=== PATIENT | female | born 1980 | race Caucasian/White ===

== ENCOUNTER 2016-06-05 10:40 | Emergency (ER) | payer BC, OTHER ==
[2016-06-05] MEDS ORDERED: DEXAMETHASONE 10 MG/ML VIAL PO STA (12:38)
[2016-06-05] MEDS ORDERED: CEPHALEXIN 250 MG CAPSULE PO STA (12:39)
[2016-06-05] MEDS ORDERED: CEPHALEXIN 250 MG CAPSULE PO ONE (12:40)
[2016-06-05] MEDS ORDERED: DEXAMETHASONE 10 MG/ML VIAL ONE (12:41)
== END 2016-06-05 12:48 | disposition home or self-care (01) ==
DX: J02.9 Acute pharyngitis, unspecified (principal); R03.0 Elevated blood-pressure reading, without diagnosis of hypertension
CPT/HCPCS: 81025; 87430; 99283; A9270

== ENCOUNTER 2017-01-21 21:43 | Emergency (ER) | payer BC ==
[2017-01-21] MEDS ORDERED: SODIUM CHLORIDE 0.9% 1,000 ML IV ONE (22:03)
[2017-01-21] MEDS ORDERED: ACETAMINOPHEN 500 MG TABLET PO STA (22:03)
[2017-01-21] MEDS ORDERED: METOCLOPRAMIDE 10 MG/2 ML VIAL IVP STA (22:03)
[2017-01-21] MEDS ORDERED: diphenhydrAMINE INJ 50 MG/ML VIAL IVP STA (22:03)
[2017-01-21] MEDS ORDERED: KETOROLAC 60 MG/2 ML VIAL IVP STA (22:21)
[2017-01-21] MEDS ORDERED: diphenhydrAMINE INJ 50 MG/ML VIAL ONE (22:29)
[2017-01-21] MEDS ORDERED: METOCLOPRAMIDE 10 MG/2 ML VIAL ONE (22:29)
[2017-01-21] MEDS ORDERED: ACETAMINOPHEN 500 MG TABLET PO ONE (22:30)
[2017-01-21] MEDS ORDERED: KETOROLAC 15 MG/ML VIAL ONE (22:30)
[2017-01-21 23:44] LABS: ALBUMIN/GLOBULIN RATIO 1.2 (1.0-2.2); BILIRUBIN,TOTAL 0.3 mg/dL (0.2-1.0); CALCIUM 8.3 mg/dL (8.5-10.3); CREATININE 0.7 mg/dL (0.4-1.0); POTASSIUM 3.4 mmol/L (3.5-5.0); TOTAL PROTEIN 6.5 g/dL (6.7-8.2)
[2017-01-21 23:49] LABS: BASOPHILS % (AUTO) 0.6 %; EOSINOPHILS # (AUTO) 0.1 10^3/uL (0.0-0.7); EOSINOPHILS % (AUTO) 1.4 %; HCT - HEMATOCRIT 38.3 % (37.0-47.0); HGB - HEMOGLOBIN 13.2 g/dL (12.0-16.0); LYMPHOCYTES # (AUTO) 1.9 10^3/uL (1.5-3.5); LYMPHOCYTES % (AUTO) 23.6 %; MEAN CORPUSCULAR HEMOGLOBIN 30.7 pg (27.0-31.0); MEAN CORPUSCULAR HGB CONC 34.5 g/dL (32.0-36.0); MEAN CORPUSCULAR VOLUME 89.1 fL (81.0-99.0); MEAN PLATELET VOLUME 8.8 fL (7.9-10.8); MONOCYTES # (AUTO) 0.5 10^3/uL (0.0-1.0); MONOCYTES % (AUTO) 6.2 %; NEUTROPHILS # (AUTO) 5.6 10^3/uL (1.5-6.6); NEUTROPHILS % (AUTO) 68.2 %; RED CELL DISTRIBUTION WIDTH 13.2 % (12.0-15.0); UNCORRECTED WHITE BLOOD COUNT 8.2 x10^3/uL; WHITE BLOOD COUNT 8.2 x10^3/uL (4.8-10.8)
--- NOTE | 2017-01-22 00:20 | ED Physician Documentation ---
PD HPI HEADACHE - Stated complaint Stated Complaint: ALLEN/HBP - Chief complaint Chief Complaint: Neuro - History obtained from History obtained from: Patient - History of Present Illness Timing - onset: Today Timing - onset during: Rest Timing - details: Gradual onset, Still present Location: Front, Global Quality: Aching Associated symptoms: No: Fever, Stiff neck, Nausea, Vomiting, Weakness, Syncope Similar symptoms before: No diagnosis Recently seen: Clinic - Additional information Additional information: Patient is a 36 year old female with no significant past medical history who is presenting to the emergency department for headache and elevated blood pressure. Patient states that today she started with a dull headache that got progressively worse. patient reports that her doctor recently told her that her blood pressure was high and that she needed to keep an eye on it. patient states that her blood pressure was again high today so she came in. Review of Systems Constitutional: denies: Fever, Chills Eyes: denies: Photophobia Ears: reports: Reviewed and negative Nose: reports: Reviewed and negative Throat: denies: Sore throat Cardiac: denies: Chest pain / pressure, Palpitations, Calf pain Respiratory: denies: Dyspnea, Cough, Wheezing GI: denies: Abdominal Pain, Nausea, Vomiting : reports: Reviewed and negative Skin: reports: Reviewed and negative Musculoskeletal: denies: Neck pain Neurologic: reports: Headache. denies: Syncope, Altered mental status, Head injury, LOC Immunocompromised: denies: Immunocompromised PD PAST MEDICAL HISTORY - Past Medical History Neuro: Headache/migraine - Past Surgical History Past Surgical History: No - Present Medications Home Medications: Ambulatory Orders Medication Instructions Recorded Confirmed Cephalexin [Keflex] 500 mg PO Q6H 7 Days capsule 06/05/16 Norgestimate-Ethinyl Estradiol 1 tab PO DAILY 06/05/16 06/05/16 [Ortho Tri-Cyclen 28 Tablet] - Allergies Allergies/Adverse Reactions: Allergies Allergy/AdvReac Type Severity Reaction Status Date / Time Penicillins Allergy Unknown Verified 01/21/17 21:58 - Social History Does the pt smoke?: No Smoking Status: Never smoker Does the pt drink ETOH?: Yes Does the pt have substance abuse?: No - Immunizations Immunizations are current?: Yes - POLST Patient has POLST: No PD ED PE NORMAL - Vitals Vital signs reviewed: Yes - General General: Alert and oriented X 3, No acute distress - HEENT HEENT: Atraumatic, PERRL, Pharynx benign - Neck Neck: Supple, no meningeal sign, No bony TTP - Cardiac Cardiac: RRR, No murmur - Respiratory Respiratory: No respiratory distress, Clear bilaterally - Abdomen Abdomen: Soft, Non tender, Non distended - Derm Derm: Normal color, Warm and dry, No rash - Extremities Extremities: No deformity, No edema, No calf tenderness / cord - Neuro Neuro: Alert and oriented X 3, 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, No motor deficit, No sensory deficit, Normal speech Eye Opening: Spontaneous Motor: Obeys Commands Verbal: Oriented GCS Score: 15 Results - Vitals Vitals: Vital Signs - 24 hr 01/21/17 01/21/17 01/21/17 21:56 22:43 23:06 Temperature 36.0 C L Heart Rate 103 H 88 95 Respiratory 99 H 16 18 Rate Blood Pressure 187/118 H 145/91 H O2 Saturation 100 100 100 01/22/17 00:27 Temperature 36.2 C L Heart Rate 91 Respiratory 16 Rate Blood Pressure 128/87 H O2 Saturation 97 Oxygen O2 Source Room air - EKG (time done) 2253 Rate: Rate (enter#) (89) Rhythm: NSR [place]: Normal Intervals: Normal [place] QRS: Normal Ischemia: Normal ST segments - Labs Labs: Laboratory Tests 01/21/17 01/21/17 01/21/17 23:20 23:20 23:20 WBC 8.2 RBC 4.30 Hgb 13.2 Hct 38.3 MCV 89.1 MCH 30.7 MCHC 34.5 RDW 13.2 Plt Count 223 MPV 8.8 Neut # 5.6 Lymph # 1.9 [place] # 0.5 Eos # 0.1 Baso # 0.0 Absolute Nucleated RBC 0.00 Nucleated RBC % 0.0 Sodium 138 Potassium 3.4 L Chloride 105 Carbon Dioxide 22 Anion Gap 11.0 BUN 9 Creatinine 0.7 Estimated GFR (MDRD) 94 Glucose 94 Calcium 8.3 L Total Bilirubin 0.3 AST 18 ALT 12 Alkaline Phosphatase 40 L Total Protein 6.5 L Albumin 3.6 Globulin 2.9 Albumin/Globulin Ratio 1.2 Lipase 18 L TSH 6.38 H PD MEDICAL DECISION MAKING - ED course Complexity details: reviewed old records, reviewed results, re-evaluated patient , considered differential, d/w patient, d/w family ED course: Patient was seen and examined at bedside. Patient was well appearing, a little anxious but in no distress. IV access was gained and labs were drawn. Patient was treated with toradol, reglan, bendaryl and IV fluids. Patient's labs were within normal limits and her blood pressure normalized without intervention. Patient and mother were educated on hypertension and lifestyle changes. patient required no further work up and was stable for discharge with outpatient follow up. Departure - Departure Disposition: 01 Home, Self Care Clinical Impression: Headache, Hypertension Condition: Good Instructions: ED Cephalgia Unspecified Follow-Up: Itz Templeton MD [Primary Care Provider] - Comments: Your diagnostics today were within normal limits. there is no sign of end organ damage. It is important to try to start to control your blood pressure with a low sodium diet and exercise. You should monitor your blood pressures at least three times a day for the next week before you can follow up with your doctor. You should makes sure you get plenty of rest and stay well hydrated. You can take motrin or tylenol as needed for pain. You may return to the emergency department at any time for new, worsening or uncontrollable symptoms. Discharge Date/Time: 01/22/17 00:29
[2017-01-22 00:28] VITALS: BP 128/87
== END 2017-01-22 00:29 | disposition home or self-care (01) ==
LOC: ED 21:43
DX: R51 Headache (principal); I10 Essential (primary) hypertension
CPT/HCPCS: 36415; 80053; 83690; 84443; 85025; 93005; 96361; 96374; 96375; 99283; A9270

== ENCOUNTER 2018-10-24 10:15 | Emergency (ER) | payer BC ==
[2018-10-24 10:25] VITALS: BP 143/92
[2018-10-24] MEDS ORDERED: CHERRY SYRUP 10 ML UDC PO ONE (10:47)
[2018-10-24] MEDS ORDERED: CYCLOBENZAPRINE 10 MG TABLET PO STA (10:47)
[2018-10-24] MEDS ORDERED: DEXAMETHASONE 10 MG/ML VIAL PO STA (10:47)
[2018-10-24] MEDS ORDERED: oxyCODONE 5 MG TABLET PO STA (10:47)
--- NOTE | 2018-10-24 10:55 | ED Physician Documentation ---
PD HPI BACK PAIN - Stated complaint Stated Complaint: BACK PX - Chief complaint Chief Complaint: Back Pain - History obtained from History obtained from: Patient, Family - History of Present Illness Timing - onset: How many days ago (2-3) Timing - duration: Days Timing - details: Gradual onset Pain level max: 8 Pain level now: 8 Location: Lower, Right Quality: Pain, Spasm Associated symptoms: No: Fever, Weakness, Numbness, Incontinent of urine, Unable to urinate, Hematuria, Incontinent of stool Improves with: Rest, Other (standing) Worsened by: Movement Contributing factors: Other (tripped on a lego) - Additional information Additional information: pain radiating down the L leg Review of Systems Constitutional: denies: Fever, Chills GI: denies: Vomiting, Diarrhea : denies: Now EGA Skin: denies: Rash Musculoskeletal: denies: Neck pain Neurologic: denies: Focal weakness, Numbness, Difficulty speaking, Headache PD PAST MEDICAL HISTORY - Past Medical History Past Medical History: No - Past Surgical History Past Surgical History: No - Present Medications Home Medications: Ambulatory Orders Medication Instructions Recorded Confirmed Norgestimate-Ethinyl Estradiol 1 tab PO DAILY 06/05/16 06/05/16 [Ortho Tri-Cyclen 28 Tablet] Cyclobenzaprine [Flexeril] 10 mg PO TID PRN #20 tablet 10/24/18 Oxycodone HCl/Acetaminophen 1 - 2 each PO Q6H PRN #14 tablet 10/24/18 [Percocet 5-325 mg Tablet] Propranolol [Inderal] 10 mg PO BID 10/24/18 10/24/18 predniSONE [Deltasone] 10 mg PO [id number] #42 tab 10/24/18 - Allergies Allergies/Adverse Reactions: Allergies Allergy/AdvReac Type Severity Reaction Status Date / Time Penicillins Allergy Unknown Verified 10/24/18 10:24 - Social History Does the pt smoke?: No Smoking Status: Never smoker Does the pt drink ETOH?: Yes Does the pt have substance abuse?: No - Immunizations Immunizations are current?: Yes - POLST Patient has POLST: No PD ED PE NORMAL - Vitals Vital signs reviewed: Yes - General General: Alert and oriented X 3, No acute distress, Well developed/nourished - HEENT HEENT: PERRL, Moist mucous membranes - Neck Neck: Supple, no meningeal sign - Cardiac Cardiac: RRR, Strong equal pulses - Respiratory Respiratory: No respiratory distress, Clear bilaterally - Abdomen Abdomen: Soft, Non tender, Non distended - Back Back: No spinal TTP (No midline tenderness to palpation or percussion. Paraspinal spasm right low lumbar.) - Derm Derm: Warm and dry, No rash - Extremities Extremities: No edema, Other (Normal bilateral lower extremity patellar and ankle jerk reflexes. Normal great toe extension bilaterally. no saddle anesthesia) - Neuro Neuro: Alert and oriented X 3, No motor deficit, No sensory deficit - Psych Psych: Normal mood, Normal affect Results - Vitals Vitals: Vital Signs - 24 hr 10/24/18 10:22 Temperature 36 C L Heart Rate 78 Respiratory 18 Rate Blood Pressure 143/92 H O2 Saturation 99 Oxygen O2 Source Room air PD MEDICAL DECISION MAKING - ED course Complexity details: considered differential (No cauda equina, no spinal epidural abscess, no fracture, no aortic dissection or evidence of aneursym rupture), d/w patient, d/w family ED course: 38-year-old female with sciatica. Will place on pain medications, steroids and muscle relaxants. She is well-appearing, nontoxic. Afebrile. Patient counseled regarding signs and symptoms for which I believe and urgent re- evaluation would be necessary. Patient with good understanding of and agreement to plan and is comfortable going home at this time This document was made in part using voice recognition software. While efforts are made to proofread this document, sound alike and grammatical errors may occur. Departure - Departure Disposition: 01 Home, Self Care Clinical Impression: Sciatica Qualifiers: Laterality: right Qualified Code(s): M54.31 - Sciatica, right side Condition: Good Instructions: ED Sciatica Follow-Up: Itz Templeton MD [Primary Care Provider] - Within 1 week Prescriptions: Cyclobenzaprine [Flexeril] 10 mg PO TID PRN #20 tablet PRN Reason: Spasms Oxycodone HCl/Acetaminophen [Percocet 5-325 mg Tablet] 1 - 2 each PO Q6H PRN #14 tablet PRN Reason: pain predniSONE [Deltasone] 10 mg PO [id number] #42 tab Comments: Return if you worsen. Follow-up with your doctor for further care. This should improve over the next few days to week. Do not drink alcohol or drive while on narcotic pain medicine. Note that many narcotic pain relievers also contain tylenol/acetaminophen. Please ensure that your total dose of acetaminophen from all sources does not exceed 3 grams (3000mg) per day. You may constipated on this medication, take a stool softener such as "Colace" twice a day while you are on it. Also recommend a lbxr-xhq-ekafeho laxative such as senna or MiraLAX any day that you do not have a bowel movement. If you received narcotic pain medication in the emergency department, do not drive or operate machinery for the next 24 hours. Discharge Date/Time: 10/24/18 11:15
== END 2018-10-24 11:15 | disposition home or self-care (01) ==
LOC: ED 10:15
DX: M54.31 Sciatica, right side (principal)
CPT/HCPCS: 99283; 99284; A9270

== ENCOUNTER 2018-12-03 14:43 | Emergency (ER) | payer BC ==
[2018-12-03 14:49] VITALS: BP 130/96
--- NOTE | 2018-12-03 15:02 | ED Physician Documentation ---
PD HPI UPPER EXT INJURY - Stated complaint Stated Complaint: RT WRIST PAIN - Chief complaint Chief Complaint: Ext Problem - History obtained from History obtained from: Patient - History of Present Illness Location: Right, Wrist Type of injury: Other (states lifting a seat in her vehicle and felt pain and swelling in the R wrist.) Where injury occurred: Home Timing - onset: How many hours ago (1) Timing - duration: Hours (1) Timing - details: Abrupt onset Pain level max: 8 Pain level now: 4 Improved by: Rest, Ice, Immobilization Worsened by: Moving, Palpating Associated symptoms: Swelling, Discolored (bruising). No: Weakness, Numbness, Tingling Similar symptoms before: Has not had sx before Recently seen: Not recently seen - Additonal information Additional information: pt is right handed Review of Systems Constitutional: denies: Fever, Chills GI: denies: Vomiting : denies: Now EGA Skin: denies: Rash Musculoskeletal: denies: Neck pain, Back pain PD PAST MEDICAL HISTORY - Past Medical History Cardiovascular: Hypertension - Past Surgical History Past Surgical History: No - Present Medications Home Medications: Ambulatory Orders Medication Instructions Recorded Confirmed Norgestimate-Ethinyl Estradiol 1 tab PO DAILY 06/05/16 06/05/16 [Ortho Tri-Cyclen 28 Tablet] Propranolol [Inderal] 10 mg PO BID 10/24/18 12/03/18 - Allergies Allergies/Adverse Reactions: Allergies Allergy/AdvReac Type Severity Reaction Status Date / Time Penicillins Allergy Unknown Verified 12/03/18 14:46 - Social History Does the pt smoke?: No Smoking Status: Never smoker Does the pt drink ETOH?: Yes Does the pt have substance abuse?: No - Immunizations Immunizations are current?: Yes - POLST Patient has POLST: No PD ED PE NORMAL - Vitals Vital signs reviewed: Yes - General General: Alert and oriented X 3, No acute distress - HEENT HEENT: Moist mucous membranes - Derm Derm: Warm and dry - Extremities Extremities: Other (R wrist - small eccymosis to ventral R wrist. Mild diffuse TTP. no snuffbox tenderness. FROM of the wrist and all fingers and thumb. Tendons intact. ) - Neuro Neuro: Alert and oriented X 3 Results - Vitals Vitals: Vital Signs - 24 hr 12/03/18 14:46 Temperature 36.6 C Heart Rate 77 Respiratory 16 Rate Blood Pressure 130/96 H O2 Saturation 100 Oxygen O2 Source Room air - Rads (name of study) R wrist xray Radiology: Prelim report reviewed, EMP read contemporaneously, See rad report (normal) PD MEDICAL DECISION MAKING - ED course Complexity details: reviewed results, re-evaluated patient, considered differential, d/w patient, d/w family ED course: Right wrist sprain. Placed in a Velcro thumb spica for comfort. Will utilize Motrin and Tylenol as needed for pain at home. No acute findings on x-ray. No snuffbox tenderness. Patient counseled regarding signs and symptoms for which I believe and urgent re-evaluation would be necessary. Patient with good understanding of and agreement to plan and is comfortable going home at this time This document was made in part using voice recognition software. While efforts are made to proofread this document, sound alike and grammatical errors may occur. She has pain with thumb movement, so will use thumb spica Departure - Departure Disposition: 01 Home, Self Care Clinical Impression: Right wrist sprain Qualifiers: Encounter type: initial encounter Qualified Code(s): S63.501A - Unspecified sprain of right wrist, initial encounter Condition: Good Instructions: ED Sprain Wrist Follow-Up: NELIA CLARK ARNP [Primary Care Provider] - Within 1 week Comments: Wear the splint as needed for comfort. Your x-ray is normal today. Return if you worsen. Follow-up with your doctor in 1 week for further care. You can use Motrin or Tylenol as needed for pain.
--- NOTE | 2018-12-03 15:21 | XRAY Report ---
Reason: R wrist pain, s/p pulling Procedure Date: 12/03/2018 Accession Number: [id number] / [id number] Procedure: XR - Wrist 4 View RT CPT Code: FULL RESULT: EXAM: RIGHT WRIST RADIOGRAPHY EXAM DATE: 12/03/2018 03:13 PM. CLINICAL HISTORY: R wrist pain, s/p pulling. COMPARISON: None. TECHNIQUE: 3 views. FINDINGS: Bones: Normal. No fractures or bone lesions. Joints: Normal. No subluxations. Soft Tissues: Normal. No soft tissue swelling. IMPRESSION: Normal wrist radiography. RADIA
== END 2018-12-03 15:38 | disposition home or self-care (01) ==
LOC: ED 14:43
DX: S63.501A Unspecified sprain of right wrist, initial encounter (principal); X50.0XXA Overexertion from strenuous movement or load, initial encounter; Y93.89 Activity, other specified; Y92.008 Other place in unspecified non-institutional (private) residence as the place of occurrence of the external cause; I10 Essential (primary) hypertension
CPT/HCPCS: 99282; 99283

== ENCOUNTER 2020-09-03 08:00 | Outpatient (CLI) | payer BC ==
--- NOTE | 2020-09-03 14:31 | XRAY Report ---
PROCEDURE: Hip w/Pelvis 2-3V LT INDICATIONS: LEFT HIP PAIN TECHNIQUE: AP pelvis with lateral view(s) of the left hip(s). COMPARISON: None. FINDINGS: Bones: No fractures or dislocations. Pelvic ring appears intact. No evidence of avascular necrosis of femoral head. No suspicious bony lesions. Soft tissues: The visualized bowel gas pattern is normal. No suspicious soft tissue calcifications. IMPRESSION: No acute left hip fracture or dislocation. No evidence of avascular necrosis. Joint space s are well-preserved. Reviewed by: Derrick Grimaldo MD on 09/03/2020 2:30 PM PDT Approved by: Derrick Grimaldo MD on 09/03/2020 2:30 PM PDT Station ID: [id number]
== END 2020-09-03 23:59 | disposition home or self-care (01) ==
LOC: DI.S 08:00
PROVIDERS: ATTEND Physician Assistant Medical
DX: M25.552 Pain in left hip (principal)

== ENCOUNTER 2022-03-12 08:10 | Emergency (ER) | payer BC ==
[2022-03-12] MEDS ORDERED: SODIUM CHLORIDE 0.9% 1,000 ML IV STA (08:51)
[2022-03-12] MEDS ORDERED: diazePAM INJ 5 MG/ML SYRINGE IVP STA ×2 (08:51→11:56)
[2022-03-12] MEDS ORDERED: MECLIZINE 12.5 MG TABLET PO STA ×3 (08:51→11:56)
[2022-03-12] MEDS ORDERED: iohexoL-300 100 ML VIAL ONE (08:56)
[2022-03-12 09:21] LABS: BASOPHILS % (AUTO) 0.5 %; EOSINOPHILS # (AUTO) 0.1 10^3/uL (0.0-0.7); EOSINOPHILS % (AUTO) 0.8 %; LYMPHOCYTES # (AUTO) 1.4 10^3/uL (1.5-3.5); LYMPHOCYTES % (AUTO) 22.5 %; MEAN CORPUSCULAR HEMOGLOBIN 29.9 pg (27.0-31.0); MEAN CORPUSCULAR HGB CONC 34.1 g/dL (32.0-36.0); MEAN CORPUSCULAR VOLUME 87.8 fL (81.0-99.0); MEAN PLATELET VOLUME 9.9 fL (7.9-10.8); MONOCYTES # (AUTO) 0.4 10^3/uL (0.0-1.0); MONOCYTES % (AUTO) 6.4 %; NEUTROPHILS # (AUTO) 4.4 10^3/uL (1.5-6.6); NEUTROPHILS % (AUTO) 69.5 %; PLT - PLATELET COUNT 223 10^3/uL (130-450); RED BLOOD COUNT 5.01 10^6/uL (4.20-5.40); RED CELL DISTRIBUTION WIDTH 12.8 % (12.0-15.0); WHITE BLOOD COUNT 6.3 x10^3/uL (4.8-10.8)
[2022-03-12 09:36] LABS: ALBUMIN 4.2 g/dL (3.2-5.5); ALBUMIN/GLOBULIN RATIO 1.4 (1.0-2.2); BILIRUBIN,TOTAL 0.9 mg/dL (0.2-1.0); CALCIUM 8.6 mg/dL (8.5-10.3); CREATININE 0.7 mg/dL (0.4-1.0); POTASSIUM 3.5 mmol/L (3.5-5.0); TOTAL PROTEIN 7.1 g/dL (6.7-8.2)
--- NOTE | 2022-03-12 10:21 | CT Report ---
PROCEDURE: ANGIO HEAD W/WO INDICATIONS: vertigo/blurred vision; right neck pain CONTRAST: 80ml Omipaque 300 TECHNIQUE: Precontrast 4.5 mm thick angled axial sections acquired from the foramen magnum to the vertex. Afte r the administration of intravenous contrast, 1 mm thick sections acquired through the [place] of [place] is. Postcontrast 4.5 mm thick sections then re-acquired from the foramen magnum to the vertex. 3-di mensional wkcwkmk-hlsdgehny-xnjjtdhoqs (MIP) and/or volume rendering reformats were acquired of the c entral intracranial vasculature. For radiation dose reduction, the following was used: automated ex posure control, adjustment of mA and/or kV according to patient size. COMPARISON: None. FINDINGS: Image quality: Excellent. Anterior circulation: Intracranial internal carotid arteries are normal in size and flow. The flow within the paired anterior cerebral arteries is normal and symmetric. The flow within the middle cer ebral arteries is normal and symmetric. The anterior communicating artery is seen. No aneurysms are seen. Posterior circulation: Visualized portions of the vertebral arteries demonstrate normal caliber, and join to form a normal appearing basilar artery. Flow within the posterior cerebral arteries is norm al and symmetric. No aneurysms are seen. CSF spaces: Ventricles are normal in size and shape. Basal cisterns are patent. No extra-axial flu id collections. Brain: No midline shift. No intracranial bleeds or masses. [place]-white matter interface appears int act. Skull and face: Calvarium and facial bones appear intact, without suspicious lesions. Sinuses: Visualized sinuses and mastoids are clear. IMPRESSION: Normal CT head and CT angiogram of the head. Reviewed by: Torsten Walker MD on 03/12/2022 10:20 AM [facility] Approved by: Torsten Walker MD on 03/12/2022 10:20 AM PST Station ID: [id number]
--- NOTE | 2022-03-12 10:23 | CT Report ---
PROCEDURE: ANGIO NECK W INDICATIONS: vertigo and blurred vision; right neck pain CONTRAST: 80ml Omipaque 300 TECHNIQUE: After the administration of intravenous contrast, 1.5 mm axial sections acquired from the aortic arch to the [place] of [place]. Coronal 3-D maximum intensity projection (MIP) and/or volume rendering ref ormats were then performed. For radiation dose reduction, the following was used: automated exposur e control, adjustment of mA and/or kV according to patient size. COMPARISON: None. FINDINGS: Image quality: Excellent. Carotid system: The great vessels demonstrate a conventional anatomy as they arise from the aortic a rch. The origins of the common carotid arteries appear patent. The common carotid arteries demonstr ate normal calibers and courses. The bifurcation regions appear normal bilaterally. The internal ca rotid arteries demonstrate normal caliber and course. Posterior circulation: The origins of the vertebral arteries appear patent. The more superior porti ons of the vertebral arteries demonstrate normal course and caliber. They join to form a normal appe aring basilar artery. Soft tissues: Visualized neck soft tissues demonstrate no suspicious abnormalities. Approximately 1 .2 cm right thyroid nodule. Bones: No suspicious bony lesions. Visualized cervical spine appears normally aligned. IMPRESSION: No significant vascular abnormality or other acute abnormality in the neck. Reviewed by: Torsten Walker MD on 03/12/2022 10:22 AM [facility] Approved by: Torsten Walker MD on 03/12/2022 10:22 AM PST Station ID: [id number]
[2022-03-12] MEDS ORDERED: DEXAMETHASONE 10 MG/ML VIAL IVP STA (11:56)
--- NOTE | 2022-03-12 12:00 | ED Physician Documentation ---
PD HPI HEENT - Stated complaint Stated Complaint: DIZZINESS/NECK PX - Chief complaint Chief Complaint: Neuro - History obtained from History obtained from: Patient - History of Present Illness Timing - onset: How many days ago (4) Timing - duration: Days (4 days of positional vertigo that has increased in severity, but still with head movments. She also has had right posterior neck pain without injury for the past 2 weeks. Has been to chirporactor and massage and taken NSAIDs without improvement. Gonzales snote some blurred vision right eye at times.) Timing - details: Gradual onset, Still present (worst today), Intermittant Location: Other (positional vertigo and right neck pain). No: Right ear, Left ear Improves: Other (vertigo improves with lying still/not moving head. This is better for the right neck pain as well.). No: Medication Worsens: Position. No: Swalllowing Associated symptoms: Headache (right posterior neck and occipital area). No: Fever, Congestion, Rhinorrhea, Cough Similar symptoms before: Has not had sx before Recently seen: Clinic Review of Systems Constitutional: denies: Fever, Chills Eyes: reports: Decreased vision. denies: Photophobia Ears: denies: Loss of hearing, Tinnitus/ringing Nose: denies: Rhinorrhea / runny nose, Congestion Throat: denies: Sore throat Respiratory: denies: Cough Skin: denies: Rash Musculoskeletal: reports: Neck pain. denies: Back pain Neurologic: reports: Headache. denies: Focal weakness, Numbness, Altered mental status, Head injury PD PAST MEDICAL HISTORY - Past Medical History Past Medical History: Yes Cardiovascular: Hypertension - Past Surgical History Past Surgical History: No - Present Medications Home Medications: Ambulatory Orders Medication Instructions Recorded Confirmed Cetirizine [ZyrTEC] 10 mg PO DAILY #15 tablet 03/12/22 Meclizine HCl [Motion Sickness] 25 mg PO Q6H PRN #30 tablet 03/12/22 Norethindrone 0.35 mg PO DAILY 03/12/22 03/12/22 dexAMETHasone [Decadron] 4 mg PO DAILY #5 tablet 03/12/22 diazePAM [Valium] 5 mg PO TID PRN #20 tablet 03/12/22 - Allergies Allergies/Adverse Reactions: Allergies Allergy/AdvReac Type Severity Reaction Status Date / Time Penicillins Allergy Unknown Verified 03/12/22 08:22 - Social History Does the pt smoke?: No Smoking Status: Never smoker Does the pt drink ETOH?: Yes Does the pt have substance abuse?: No - Immunizations Immunizations are current?: Yes - POLST Patient has POLST: No PD ED PE NORMAL - Vitals Vital signs reviewed: Yes - General General: Alert and oriented X 3, Well developed/nourished, Other (guardedly holding head still. Has feeling of nauseea and vertiog with head movement. Some nystagmus to the right noted after head movement. Horizontal direction. ) - HEENT HEENT: Atraumatic, PERRL, EOMI (some nystagmus to the right after head movement. 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, No motor deficit, No sensory deficit, Normal speech, Other Results - Vitals Vitals: Vital Signs - 24 hr 03/12/22 03/12/22 03/12/22 08:18 10:33 12:12 Temperature 36.5 C Heart Rate 89 73 89 Respiratory 14 14 20 Rate Blood Pressure 169/100 H 148/94 H 150/109 H O2 Saturation 97 100 98 Oxygen O2 Source Room air - Labs Labs: Laboratory Tests 03/12/22 03/12/22 03/12/22 09:09 09:09 09:09 WBC 6.3 RBC 5.01 Hgb 15.0 Hct 44.0 MCV 87.8 MCH 29.9 MCHC 34.1 RDW 12.8 Plt Count 223 MPV 9.9 Neut # (Auto) 4.4 Lymph # (Auto) 1.4 L Grayson # (Auto) 0.4 Eos # (Auto) 0.1 Baso # (Auto) 0.0 Absolute Nucleated RBC 0.00 Nucleated RBC % 0.0 ESR 5 Sodium 135 Potassium 3.5 Chloride 100 L Carbon Dioxide 26 Anion Gap 9.0 BUN 7 Creatinine 0.7 Estimated GFR (MDRD) 91 Glucose 104 H Calcium 8.6 Total Bilirubin 0.9 AST 16 ALT 16 Alkaline Phosphatase 48 Total Protein 7.1 Albumin 4.2 Globulin 2.9 Albumin/Globulin Ratio 1.4 Lipase 27 - Rads (name of study) neck and head angios Radiology: Prelim report reviewed (no acute process. ), See rad report PD Medical Decision Making - ED course Complexity details: reviewed results (we discussed my concers with neck pain and vertigo and shared decision to get imaging of CT-A. ), re-evaluated patient (She is feeling moderately improved aftetr Meclizine and Diazepam. Able to move head and sit up without vomiting/too severe nausea. Given repeat dose. ), considered differential (the vertigo is postional with dampening and stopping when holds still. Some nysagmus noted. No focal weaknesses. My main concern though is the associated right posterior neck pain for 2 weeks without noted injury and has had persistent. Concern for vertebral artery dissection, or st ructural process.), d/w patient Reviewed Lab Results: with normal labs, particularly ESR and lytes, and also normal immaging of CT-A, there is no VA dissection nor any noted masses/tumors/bleeding. CT canot be used to fully exclude cerebellar insults such as small CVA or MS. However she does not have risk factors for CVA per se. the symptoms are not consistent, but are p ositional. I feel the main differential that needed to be excluded was vertebral artery dissection. I feel the workup is adequate at this time. discussed with patient and shared decision to treat symptoms as peripheray vertigo at this time, with muscular neck pain. Drug Therapy Requiring Monitoring for Toxicity: given meclizine and diazepam for the vertigo without causing altered mentation or excess sedation. Departure - Departure Disposition: 01 Home, Self Care Clinical Impression: Positional vertigo, Neck pain on right side Condition: Stable Record reviewed to determine appropriate education?: Yes Instructions: ED Neck Pain No Trauma, ED Vertigo Unspecified Follow-Up: Zunilda Reyes ARNP [Primary Care Provider] - Prescriptions: dexAMETHasone [Decadron] 4 mg PO DAILY #5 tablet Meclizine HCl [Motion Sickness] 25 mg PO Q6H PRN #30 tablet PRN Reason: Vertigo diazePAM [Valium] 5 mg PO TID PRN #20 tablet PRN Reason: Vertigo Cetirizine [ZyrTEC] 10 mg PO DAILY #15 tablet Comments: Your basic blood tests as well as your CT scans of the neck and head are normal. This excludes conditions such as obvious tumors, bleeding, swelling, major stroke and in particular no signs of vascular abnormalities of the arteries in the neck such as dissection or blockage. I presume your neck pain is musculoskeletal. There is no comment in particular of disc problems or structural malady of the spine. We can treat this with anti-inflammatory such as Decadron or naproxen or ibuprofen. The vertigo I presume is coming from the inner ear ear and often will be some inflammation nor fluid congestion in their leading to the vertigo. We can treat this again with some types of anti-inflammatories and therefore the Decadron steroid will be useful for both. Also cetirizine antihistamine daily. To that add meclizine every 6-8 hours if needed for vertigo/dizziness and diazepam every 6-8 hours in addition if needed for vertigo as well. I would presume this to improve over the next several days and be resolved by 3 to 5 days. Recheck if not improving during that time and return if worse. The above test we did are not fully exclusive of all problems. If you have persisting symptoms, particularly the vertigo, then your primary care may suggest you follow-up with manager search or could potentially consider other imaging of the brain such as MRI for rare problems such as MS. This would be fairly unlikely and does not needed different approach/treatment at this time. I sent your prescriptions to [facility] in [place] as you requested. Discharge Date/Time: 03/12/22 12:34
[2022-03-12 12:13] VITALS: BP 150/109
[2022-03-12] MEDS ORDERED: iohexoL-300 100 ML VIAL IVP ONE (16:52)
== END 2022-03-12 12:34 | disposition home or self-care (01) ==
LOC: ED 08:10
DX: H81.10 Benign paroxysmal vertigo, unspecified ear (principal); M54.2 Cervicalgia
CPT/HCPCS: 36415; 70496; 70498; 80053; 83690; 85025; 85651; 96374; 96375; 96376; 99283; 99284; A9270; Q9967

== ENCOUNTER 2023-08-24 11:09 | Emergency (ER) | payer BC ==
[2023-08-24 11:49] VITALS: O2SAT 100
[2023-08-24] MEDS: DEXAMETHASONE 10 MG/ML VIAL IM STA (13:35)
[2023-08-24] MEDS: KETOROLAC 60 MG/2 ML VIAL IM STA (13:35)
--- NOTE | 2023-08-24 13:59 | ED Physician Documentation ---
PD HPI BACK PAIN - Stated complaint Stated Complaint: LOWER BACK PX - Chief complaint Chief Complaint: Back Pain - History obtained from History obtained from: Patient - History of Present Illness Timing - onset: Today Pain level max: 6 Pain level now: 6 Location: Lower, Right Quality: Pain, Spasm, Similar to prior episodes Associated symptoms: No: Fever, Weakness, Numbness, Incontinent of urine, Unable to urinate, Hematuria, Incontinent of stool Improves with: Rest Worsened by: Movement Contributing factors: No: Lifting, Twisting, Trauma, Anticoagulated, IVDA Recently seen: Not recently seen - Additional information Additional information: 43-year-old female states that she was at work today when she bent over to pick something up, when she tried to stand up she felt something sharp in her back and now has pain radiating down the right leg. Worse with movement, better with rest. Also complains of spasm in her back. Has not had similar symptoms previously. No trauma. Denies any possibility of . Has not taken anything for pain. 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 : None HEENT: None Psych: None Musculoskeletal: None Derm: None - Past Surgical History Past Surgical History: No - Present Medications Home Medications: Ambulatory Orders Medication Instructions Recorded Confirmed Cetirizine [ZyrTEC] 10 mg PO DAILY #15 tablet 03/12/22 Meclizine HCl [Motion Sickness] 25 mg PO Q6H PRN #30 tablet 03/12/22 Norethindrone 0.35 mg PO DAILY 03/12/22 03/12/22 dexAMETHasone [Decadron] 4 mg PO DAILY #5 tablet 03/12/22 diazePAM [Valium] 5 mg PO TID PRN #20 tablet 03/12/22 Cyclobenzaprine [Flexeril] 10 mg PO TID PRN #20 tablet 08/24/23 Ibuprofen [Motrin] 800 mg PO Q8H PRN #30 tablet 08/24/23 Oxycodone HCl/Acetaminophen 1 - 2 each PO Q6H PRN #14 tablet 08/24/23 [Percocet 5-325 mg Tablet] MDD 6 tabs methylPREDNISolone [Medrol] 4 mg PO DAILY #1 each 08/24/23 - Allergies Allergies/Adverse Reactions: Allergies Allergy/AdvReac Type Severity Reaction Status Date / Time Penicillins Allergy Unknown Verified 08/24/23 11:40 - Social History Does the pt smoke?: No Smoking Status: Never smoker Does the pt drink ETOH?: Yes Does the pt have substance abuse?: No - Immunizations Immunizations are current?: Yes - POLST Patient has POLST: No PD ED PE NORMAL - Vitals Vital signs reviewed: Yes - General General: Alert and oriented X 3, No acute distress - HEENT HEENT: Moist mucous membranes - Neck Neck: Supple, no meningeal sign - Cardiac Cardiac: RRR, Strong equal pulses - Respiratory Respiratory: No respiratory distress, Clear bilaterally - Abdomen Abdomen: Soft, Non tender, Non distended - Back Back: No spinal TTP (No midline tenderness to palpation or percussion. No step- off or deformity.) - Derm Derm: Warm and dry - Extremities Extremities: No edema, No calf tenderness / cord - Neuro Neuro: Alert and oriented X 3, Other (Normal bilateral lower extremity patellar and ankle jerk reflexes. Normal great toe extension bilaterally. no saddle anesthesia) - Psych Psych: Normal mood, Normal affect Results - Vitals Vitals: Vital Signs - 24 hr 08/24/23 08/24/23 11:40 14:17 Temperature 36.6 C Heart Rate 95 85 Respiratory 18 16 Rate Blood Pressure 170/93 H 148/93 H O2 Saturation 100 100 Oxygen O2 Source Room air PD Medical Decision Making - ED course Complexity details: re-evaluated patient, considered differential (No cauda equina, no spinal epidural abscess, no fracture, no aortic dissection or evidence of aneursym rupture), d/w patient ED course: Patient is a 43-year-old female with what appears to be a right-sided sciatica. No evidence of cauda equina, epidural abscess. No focal neurological deficits. No indication for emergent imaging. Given Toradol and dexamethasone here. Will place on Medrol, oxycodone, Flexeril and anti-inflammatories for home. Ambulating without difficulty. Patient counseled regarding signs and symptoms for which I believe and urgent re-evaluation would be necessary. Patient with good understanding of and agreement to plan and is comfortable going home at this time This document was made in part using voice recognition software. While efforts are made to proofread this document, sound alike and grammatical errors may occur. Departure - Departure Disposition: 01 Home, Self Care Clinical Impression: Back spasm Sciatica Qualifiers: Laterality: right Qualified Code(s): M54.31 - Sciatica, right side Condition: Good Instructions: ED Sciatica Follow-Up: Zunilda Reyes ARNP [Primary Care Provider] - Within 1 week Prescriptions: Cyclobenzaprine [Flexeril] 10 mg PO TID PRN #20 tablet PRN Reason: Spasms methylPREDNISolone [Medrol] 4 mg PO DAILY #1 each Ibuprofen [Motrin] 800 mg PO Q8H PRN #30 tablet PRN Reason: PAIN &/OR FEVER Oxycodone HCl/Acetaminophen [Percocet 5-325 mg Tablet] 1 - 2 each PO Q6H PRN #14 tablet MDD 6 tabs PRN Reason: pain Comments: Your prescriptions were sent to the [facility] pharmacy. Please use the medications as prescribed for your back. Please return if you worsen. This generally will improve over the next few days. Please follow-up closely with your doctor as this may require physical therapy. I am prescribing a short course of narcotic pain medication for you. These are potentially dangerous and addictive medications that should be used carefully. These medications may constipate you. Take an [id number] stool softener (docusate) twice daily with plenty of water while taking these medications. If you go 24 hours without a bowel movement, take [id number] miralax, per package instructions. Do not drink or drive while taking these medications. If you received narcotic or sedating medications while in the emergency depar tment, do not drive for 24 hours. Store this medication in a safe, secure place and out of reach of children. It is a violation of federal law to give or sell this medication to another person or to use in a manner other than prescribed. The ED will not refill narcotic prescriptions, including prescriptions lost or stolen. To dispose of unwanted medications: 1. [facility] at [address] in [place] has a medication drop box. They accept prescription medications (in pill form) Thursday through Thursday 9:00 a.m. to 5:00 p.m. 2. The [facility] [employer] accepts prescription medications (in pill form only) for disposal year round. Call for more information. 3. Contact the [facility] for the next [facility] sponsored prescription drug collection event. , [phone], or [phone]; Forms: Activity restrictions Discharge Date/Time: 08/24/23 14:18
[2023-08-24 14:27] VITALS: BP 148/93
== END 2023-08-24 14:18 | disposition home or self-care (01) ==
LOC: ED 11:09
DX: M54.31 Sciatica, right side (principal); M62.830 Muscle spasm of back; X50.1XXA Overexertion from prolonged static or awkward postures, initial encounter; Y99.0 Civilian activity done for income or pay; I10 Essential (primary) hypertension; Z79.899 Other long term (current) drug therapy
CPT/HCPCS: 96372; 99283